=== PATIENT | male | born 1940 | race Caucasian/White ===

== ENCOUNTER 2023-12-22 18:40 | Inpatient (IN) | payer MEDICARE, OTHER ==
[~2023-12-22] VITALS: Ht 172.7 cm; Wt 45.4 kg
[2023-12-22 21:30] VITALS: BP 126/58; TEMP 98.5; O2SAT 97
[2023-12-22 21:40] VITALS: BP 126/58; TEMP 98.5; O2SAT 97
[2023-12-22] MEDS ORDERED: MORPHINE SULFATE INJ 2 MG/ML DISP.SYRIN IV PRN (22:30)
[2023-12-22] MEDS ORDERED: hydrALAZINE HCL IV 20 MG VIAL IV PRN (22:30)
[2023-12-22] MEDS ORDERED: ONDANSETRON HCL/PF 4 MG/2 ML VIAL IVP PRN (22:30)
[2023-12-22] MEDS: IV NS 0.9% 1,000 ML IV SCH (23:06)
[2023-12-22] MEDS: MEROPENEM 500MG/NS 50 ML PB IV ONE (23:07)
[2023-12-22] MEDS: MEROPENEM 1 G in IV NS 0.9% 100 ML IV ONE (23:08)
[2023-12-22 23:10] LABS: BASOPHILS % (AUTO) 0.1 % (0.0-2.0); EOSINOPHILS % (AUTO) 0.1 % (0.0-6.0); HEMATOCRIT 33 % (39-51); HEMOGLOBIN 10.9 g/dL (13.5-17.5); LYMPHOCYTES # (AUTO) 0.5 K/uL (0.8-4.8); LYMPHOCYTES % (AUTO) 5.3 % (20.0-44.0); MEAN CORPUSCULAR HEMOGLOBIN 28 PG (26.0-33.0); MEAN CORPUSCULAR HGB CONC 33 g/dl (31.0-36.0); MEAN CORPUSCULAR VOLUME 85 fL (80-96); MONOCYTES # (AUTO) 0.4 K/uL (0.1-1.30); MONOCYTES % (AUTO) 4.7 % (2.0-12.0); NEUTROPHILS # (AUTO) 7.8 K/uL (1.8-8.9); NEUTROPHILS % (AUTO) 89.8 % (43.0-81.0); PLATELET COUNT (AUTO) 195 K/uL (150-450); RED BLOOD CELL COUNT(AUTO) 3.89 MIL/uL (4.5-6.0); RED CELL DISTRIBUTION WIDTH 14.4 % (11.5-15.0); WHITE BLOOD COUNT (AUTO) 8.7 K/uL (4.3-11.0)
[2023-12-22 23:26] LABS: APPEARANCE,URINE TURBID (CLEAR); BILIRUBIN,URINE NEGATIVE (NEGATIVE); BLOOD, URINE 2+ Ery/uL (NEGATIVE); COLOR,URINE DARK YELLOW (YELLOW); KETONES,URINE NEGATIVE (NEGATIVE); LEUKOCYTE ESTERASE ,URINE 2+ (NEGATIVE); NITRITE, URINE NEGATIVE (NEGATIVE); PROTEIN,URINE 2+ mg/dl (NEGATIVE); UGLUCOSE NEGATIVE (NEGATIVE); UROBILINOGEN,URINE 0.2 EU/dL (0.2)
[2023-12-22 23:29] LABS: ADD URINE CULTURE YES; BACTERIA,URINE Few /HPF (None Seen); SQUAMOUS EPITHELIAL CELL,UR Rare /HPF (None Seen); WBC,URINE 21-50 /HPF (0-3)
[2023-12-22 23:35] LABS: CALCIUM, SERUM 8.6 mg/dL (8.5-10.1); CARBON DIOXIDE 23 mmol/L (21-32); CHLORIDE 104 mmol/L (98-107); CREATININE 1.5 mg/dL (0.6-1.3); GLUCOSE 258 mg/dL (74-106); POTASSIUM 3.2 mmol/L (3.5-5.1); SODIUM SERUM 140 mmol/L (136-145); UREA NITROGEN, BLOOD 34 mg/dL (7-18)
[2023-12-22 23:40] LABS: CREATINE KINASE, TOTAL 26 U/L (39-308)
[2023-12-22 23:41] LABS: SERUM AMMONIA < 11 umol/L (11-32)
[2023-12-22 23:45] LABS: LACTIC ACID 3.9 mmol/L (0.4-2.0)
[2023-12-22 23:49] LABS: ALANINE AMINOTRANSFERASE 7 U/L (12-78); ALBUMIN 2.3 g/dL (3.4-5.0); ALKALINE PHOSPHATASE 103 U/L (46-116); ASPARTATE AMINOTRANSFERASE 7 U/L (15-37); BILIRUBIN,TOTAL 0.3 mg/dL (0.2-1.0); TOTAL PROTEIN, SERUM 6.8 g/dL (6.4-8.2)
[2023-12-23] VITALS: BP 105/54; TEMP 98.4; O2SAT 97
[2023-12-23] MEDS: IV NS 0.9% 1,000 ML BAG IV ONE (00:07)
[2023-12-23 02:07] LABS: BILIRUBIN,DIRECT 0.1 mg/dL (0.0-0.2)
[2023-12-23 02:18] LABS: LACTIC ACID REFLEX 3.6 mmol/L (0.4-1.9)
[2023-12-23 04:00] VITALS: BP 101/50; TEMP 98.2; O2SAT 96
[2023-12-23 06:40] LABS: BASOPHILS % (AUTO) 0.1 % (0.0-2.0); HEMATOCRIT 30 % (39-51); HEMOGLOBIN 9.9 g/dL (13.5-17.5); LYMPHOCYTES # (AUTO) 0.8 K/uL (0.8-4.8); LYMPHOCYTES % (AUTO) 8.8 % (20.0-44.0); MEAN CORPUSCULAR HEMOGLOBIN 28 PG (26.0-33.0); MEAN CORPUSCULAR HGB CONC 34 g/dl (31.0-36.0); MEAN CORPUSCULAR VOLUME 84 fL (80-96); MONOCYTES # (AUTO) 0.7 K/uL (0.1-1.30); MONOCYTES % (AUTO) 7.7 % (2.0-12.0); NEUTROPHILS # (AUTO) 7.4 K/uL (1.8-8.9); NEUTROPHILS % (AUTO) 83.4 % (43.0-81.0); PLATELET COUNT (AUTO) 175 K/uL (150-450); RED BLOOD CELL COUNT(AUTO) 3.51 MIL/uL (4.5-6.0); RED CELL DISTRIBUTION WIDTH 14.2 % (11.5-15.0); WHITE BLOOD COUNT (AUTO) 8.9 K/uL (4.3-11.0)
[2023-12-23 08:00] VITALS: BP 111/50; TEMP 99.9; O2SAT 96
[2023-12-23 08:56] LABS: ALANINE AMINOTRANSFERASE 9 U/L (12-78); ALBUMIN 2.1 g/dL (3.4-5.0); ALKALINE PHOSPHATASE 90 U/L (46-116); ASPARTATE AMINOTRANSFERASE 8 U/L (15-37); BILIRUBIN,TOTAL 0.2 mg/dL (0.2-1.0); CALCIUM, SERUM 8.1 mg/dL (8.5-10.1); CARBON DIOXIDE 23 mmol/L (21-32); CHLORIDE 109 mmol/L (98-107); GLUCOSE 160 mg/dL (74-106); MAGNESIUM 2.2 mg/dL (1.8-2.4); PHOSPHORUS 2.9 mg/dL (2.5-4.9); POTASSIUM 3.5 mmol/L (3.5-5.1); SODIUM SERUM 145 mmol/L (136-145); TOTAL PROTEIN, SERUM 6.1 g/dL (6.4-8.2); UREA NITROGEN, BLOOD 30 mg/dL (7-18)
[2023-12-23] MEDS: HEPARIN SODIUM, PORCINE 5000 UNITS/1 ML VIAL SQ SCH (09:01)
[2023-12-23] MEDS: MEROPENEM 1 G in IV NS 0.9% 100 ML IV SCH (09:02)
[2023-12-23] MEDS ORDERED: QUET50TA PO (09:25)
[2023-12-23] MEDS ORDERED: PENT400T17 PO (09:25)
[2023-12-23] MEDS ORDERED: MIRT-91 PO (09:25)
[2023-12-23] MEDS ORDERED: TELM80TA2 PO (09:25)
[2023-12-23] MEDS ORDERED: ALFU10TA10 PO (09:25)
[2023-12-23] MEDS ORDERED: ALPR0.5T PO (09:25)
[2023-12-23] MEDS ORDERED: DILT-32 PO (09:25)
[2023-12-23] MEDS ORDERED: CARB1TAB21 PO (09:25)
[2023-12-23] MEDS ORDERED: DIVA500T54 PO (09:25)
[2023-12-23] MEDS ORDERED: BENZ2TAB7 PO (09:25)
[2023-12-23] MEDS ORDERED: CYAN-51 PO (09:25)
[2023-12-23] MEDS ORDERED: VENL225T PO (09:25)
[2023-12-23] MEDS ORDERED: DUTA0.5C37 PO (09:25)
[2023-12-23] MEDS ORDERED: PRUC2TAB PO (09:25)
[2023-12-23 11:51] LABS: OCCULT BLOOD STOOL NEGATIVE (NEGATIVE)
[2023-12-23 12:00] VITALS: BP 110/54; TEMP 98; O2SAT 98
[2023-12-23] MEDS ORDERED: ALPRAZOLAM 0.5 MG TABLET PO PRN (12:30)
[2023-12-23] MEDS: CARBIDOPA/LEVODOPA 25/100 MG 1 UDTAB PO SCH (13:07)
[2023-12-23] MEDS: PENTOXIFYLLINE 400 MG TABLET.SA PO SCH (13:54)
[2023-12-23 16:00] VITALS: BP 142/66; TEMP 99.5; O2SAT 94
[2023-12-23 20:00] VITALS: BP 151/65; TEMP 98.4; O2SAT 96
[2023-12-23] MEDS: PANTOPRAZOLE 40 MG VIAL IV SCH (21:05)
[2023-12-23] MEDS: QUETIAPINE FUMARATE 25 MG TABLET PO SCH (21:06)
[2023-12-23] MEDS: DIVALPROEX SODIUM 500 MG TABLET.DR PO SCH (21:06)
[2023-12-23] MEDS: SENNOSIDES 8.6 MG TABLET PO SCH (21:07)
[2023-12-23] MEDS: MIRTAZAPINE 15 MG TABLET PO SCH (21:07)
[2023-12-24] VITALS (10 sets, daily range): BP systolic 100–154; BP diastolic 55–68; TEMP 98.1–99.5; O2SAT 93–100
[2023-12-24 09:18] LABS: BASOPHILS % (AUTO) 0.1 % (0.0-2.0); HEMATOCRIT 30 % (39-51); HEMOGLOBIN 9.5 g/dL (13.5-17.5); LYMPHOCYTES # (AUTO) 1.8 K/uL (0.8-4.8); MEAN CORPUSCULAR HEMOGLOBIN 27 PG (26.0-33.0); MEAN CORPUSCULAR HGB CONC 32 g/dl (31.0-36.0); MEAN CORPUSCULAR VOLUME 85 fL (80-96); MONOCYTES % (AUTO) 8.4 % (2.0-12.0); NEUTROPHILS # (AUTO) 8.8 K/uL (1.8-8.9); NEUTROPHILS % (AUTO) 75.5 % (43.0-81.0); PLATELET COUNT (AUTO) 157 K/uL (150-450); RED BLOOD CELL COUNT(AUTO) 3.49 MIL/uL (4.5-6.0); WHITE BLOOD COUNT (AUTO) 11.6 K/uL (4.3-11.0)
[2023-12-24] MEDS: DUTASTERIDE (0.5 MG) 0.5 MG CAPSULE PO SCH (09:36)
[2023-12-24] MEDS: DOCUSATE SODIUM 100 MG CAPSULE PO SCH (09:36)
[2023-12-24] MEDS: BENZTROPINE MESYLATE (1 MG) 1 MG TABLET PO SCH (09:36)
[2023-12-24] MEDS: LOSARTAN POTASSIUM 50 MG TABLET PO SCH (09:37)
[2023-12-24] MEDS: DILTIAZEM HCL CD 120 MG PO SCH (09:38)
[2023-12-24 09:41] LABS: IRON, SERUM 72 ug/dl (50-175); TOTAL IRON BINDING CAPACITY 177 ug/dl (250-450)
[2023-12-24 09:55] LABS: CREATINE KINASE, TOTAL 13 U/L (39-308); FERRITIN 196 ng/mL (8-388)
[2023-12-24 10:07] LABS: ALANINE AMINOTRANSFERASE < 6 U/L (12-78); ALKALINE PHOSPHATASE 72 U/L (46-116); ASPARTATE AMINOTRANSFERASE 11 U/L (15-37); BILIRUBIN,TOTAL 0.2 mg/dL (0.2-1.0); CALCIUM, SERUM 7.9 mg/dL (8.5-10.1); CARBON DIOXIDE 22 mmol/L (21-32); CHLORIDE 109 mmol/L (98-107); CREATININE 0.8 mg/dL (0.6-1.3); GLUCOSE 108 mg/dL (74-106); MAGNESIUM 2.1 mg/dL (1.8-2.4); PHOSPHORUS 1.6 mg/dL (2.5-4.9); SODIUM SERUM 142 mmol/L (136-145); TOTAL PROTEIN, SERUM 5.6 g/dL (6.4-8.2); UREA NITROGEN, BLOOD 25 mg/dL (7-18)
[2023-12-24] MEDS: IPRATROPIUM NEB FS 0.5 MG/2.5 ML AMPUL.NEB NEB SCH (11:00)
[2023-12-24] MEDS: K PHOS NEUTRAL 250 MG TABLET PO ONE (12:59)
[2023-12-24] MEDS: POTASSIUM CHLORIDE 20 MEQ TAB.PRT.SR PO SCH (12:59)
[2023-12-24] MEDS: ENSURE ENLIVE CHOC 237 ML CAN PO SCH (18:40)
[2023-12-24] MEDS: PANTOPRAZOLE 40 MG/PACK PACK PO SCH (21:20)
[2023-12-25] VITALS (11 sets, daily range): BP systolic 135–158; BP diastolic 57–81; TEMP 98.2–98.8; O2SAT 86–99
[2023-12-25 04:06] LABS: PTH, INTACT 48 pg/mL (15-65)
[2023-12-25] MEDS: ACETAMINOPHEN 325 MG TABLET PO PRN (09:19)
[2023-12-25 13:07] LABS: *SPE A/G RATIO 0.7 (0.7-1.7); *SPE ALBUMIN 2.1 g/dL (2.9-4.4); *SPE ALPHA-1-GLOBULIN 0.3 g/dL (0.0-0.4); *SPE ALPHA-2-GLOBULIN 1.1 g/dL (0.4-1.0); *SPE BETA GLOBULIN 0.7 g/dL (0.7-1.3); *SPE M-SPIKE Not Observed g/dL (Not Observed); *SPE PROTEIN TOTAL 5.1 g/dL (6.0-8.5); *SPEGAMMA GLOBULIN 0.9 g/dL (0.4-1.8)
[2023-12-26] MEDS ORDERED: CEPH500C2 PO (10:28)
[2023-12-26 12:23] VITALS: BP 149/67; TEMP 97.9; O2SAT 97
== END 2023-12-26 12:30 | DRG 871 ==
LOC: TELE 21:23
PROVIDERS: ADMIT Internal Medicine
DX: A41.9 Sepsis, unspecified organism (principal); G93.41 Metabolic encephalopathy; N17.0 Acute kidney failure with tubular necrosis; N39.0 Urinary tract infection, site not specified; F32.A Depression, unspecified; J44.9 Chronic obstructive pulmonary disease, unspecified; D63.8 Anemia in other chronic diseases classified elsewhere; E83.119 Hemochromatosis, unspecified; Z87.440 Personal history of urinary (tract) infections; B96.5 Pseudomonas (aeruginosa) (mallei) (pseudomallei) as the cause of diseases classified elsewhere; Z20.822 Contact with and (suspected) exposure to COVID-19; J43.9 Emphysema, unspecified; R09.02 Hypoxemia; I25.10 Atherosclerotic heart disease of native coronary artery without angina pectoris
CPT/HCPCS: 36415; 70450-TC; 71250-TC; 76770-TC; 80053-TC; 81001; 82140-TC; 82248-TC; 82272-TC; 82550-TC; 82607-TC; 82728-TC; 83540-TC; 83605-TC; 83735-TC; 83970; 84100-TC; 84155; 84165; 84484-TC; 85025-TC; 87040-TC; 87086-TC; 92526; 92611-TC; 93307-TC; 94762-TC; 94799-TC; 97110-TC; 97116-TC; 97530-TC; A4223; C9113; G0378; J1644; J2185; J7030